=== PATIENT | female | born 1950 | race African-American/Black ===

== ENCOUNTER 2016-04-30 13:43 | Emergency (ER) | payer MEDICARE, OTHER ==
[~2016-04-30] VITALS: Ht 167.6 cm; Wt 96.0 kg
[~2016-04-30 13:43] MED LIST: ALBU8I INH; AMLO10 PO; AUGM875T PO; FLUT1SPR9; LOVA1TAB47 PO; NEXI40CA PO; ZITH250T PO
[2016-04-30 13:50] VITALS: BP 131/82; PULSE 76; RESP 16; TEMP 98.2; O2SAT 97
[2016-04-30 14:14] LABS: BLOOD, URINE NEG (NEG); GLUCOSE,URINE NEG (NEG); KETONE, URINE NEG (NEG); NITRITE,URINE NEG (NEG); PH, URINE 6.5 (5.0-8.5)
[2016-04-30 14:16] LABS: METHOD OF COLLECTION CLEAN CATCH; URINE COLOR YELLOW (YELLW/STRAW)
[2016-04-30 14:17] LABS: SQUAMOUS EPITHELIAL CELL URINE 0-5 /hpf (0-5); WBC, URINE 0-2 /hpf (0-5)
[2016-04-30 14:18] LABS: COMMENT (UR) CULT NOT INDICATED; CULTURE IF INDICATED CULT NOT INDICATED
[2016-04-30] MEDS ORDERED: AMLO10TA2 PO (14:32)
[2016-04-30] MEDS ORDERED: LOVA20TA PO (14:32)
--- NOTE | 2016-04-30 15:12 | PD ---
HPI Chief Complaint: Musculoskeletal Complaint Time Seen by Provider: 15:12 Travel History International Travel<30 days: No Contact w/Intl Traveler<30days: No Traveled to known affect area: No History of Present Illness HPI 66-year-old female presents to the ED for evaluation of 1 week history of right- sided back and flank pain. Patient states that his become worsened over the last 2 days. She describes the pain as sharp, intermittent. She states that the pain comes on suddenly then gradually fades away. She denies fever or chills, abdominal pain, nausea, vomiting. She does endorse increased urinary urgency without dysuria. Denies history of kidney stones. Endorses history of lap iain. No treatment attempted at home. PFSH Past Medical History Cancer: No Cardiovascular Problems: No High Cholesterol: Yes Diabetes: No Diminished Hearing: No Endocrine: No Gastrointestinal Disorders: Yes (REFLUX) GERD: Yes Genitourinary: No Hepatitis: No Hiatal Hernia: No Hypertension: Yes Immune Disorder: No Musculoskeletal: No Neurologic: No Psychiatric: No Reproductive: No Respiratory: No Immunizations Current: No Thyroid Disease: No Influenza Vaccination: Yes ?: Not Menopausal: Yes : 3 Para: 3 Past Surgical History Abdominal Surgery: Yes (LAP. IAIN) AICD: No Appendectomy: Yes Cholecystectomy: Yes Hysterectomy: Yes Joint Replacement: No Pacemaker: No Other Surgery: Yes Social History [facility] Use: Yes ([facility]) Tobacco Use: Yes (QUIT IN 1989) Substance Use: No Allergies-Medications (Allergen,Severity, Reaction): Coded Allergies: No Known Allergies (Verified , 04/30/16) Reported Meds & Prescriptions Reported Meds & Active Scripts Active Flexeril (Cyclobenzaprine HCl) 10 Mg Tab 10 Mg PO TID Ibuprofen 800 Mg Tab 800 Mg PO Q8H Reported Lovastatin 20 Mg Tab 20 Mg PO HS Amlodipine (Amlodipine Besylate) 10 Mg Tab 20 Mg PO DAILY Review of Systems Except as stated in HPI: all other systems reviewed are Neg Physical Exam Narrative GENERAL: Well-nourished, well-developed nontoxic-appearing black female in no acute distress. SKIN: Warm and dry. HEAD: Normocephalic. EYES: No scleral icterus. No injection or drainage. NECK: Supple, trachea midline. No JVD or lymphadenopathy. CARDIOVASCULAR: Regular rate and rhythm without murmurs, gallops, or rubs. RESPIRATORY: Breath sounds clear and equal bilaterally. No accessory muscle use. GASTROINTESTINAL: Abdomen soft, non-tender, nondistended. + Right-sided flank and RLQ TTP. MUSCULOSKELETAL: No cyanosis, or edema. BACK: No midline tenderness. No obvious deformity. + right sided CVA tenderness. Data Data Last Documented VS Vital Signs Date Time Temp Pulse Resp B/P Pulse Ox O2 Delivery O2 Flow Rate FiO2 04/30/16 13:50 98.2 76 16 131/82 97 Orders Urinalysis - C+S If Indicated (04/30/16 13:53) Ct Abd/Pel W/O Iv Contrast (04/30/16 15:16) Ketorolac Inj (Toradol Inj) (04/30/16 16:15) Orphenadrine Inj (Norflex Inj) (04/30/16 16:15) Labs Laboratory Tests Test 04/30/16 13:50 Urine Collection Type CLEAN CATCH Urine Color YELLOW Urine Turbidity CLEAR Urine pH 6.5 Urine Specific [place] 1.005 Urine Protein NEG mg/dL Urine Glucose (UA) NEG mg/dL Urine Ketones NEG mg/dL Urine Occult Blood NEG Urine Nitrite NEG Urine Bilirubin NEG Urine Leukocyte Esterase NEG Urine WBC 0-2 /hpf Urine Squamous Epithelial 0-5 /hpf Cells Microscopic Urinalysis Comment CULT NOT INDICATED MDM Medical Decision Making Medical Screen Exam Complete: Yes Emergency Medical Condition: Yes Differential Diagnosis UTI versus nephroureterolithiasis versus musculoskeletal pain versus other Narrative Course 66-year-old female presents to the ED for evaluation of 1 week history of right- sided back and flank pain. Patient states that his become worsened over the last 2 days. She describes the pain as sharp, intermittent. She states that the pain comes on suddenly then gradually fades away. She denies fever or chills, abdominal pain, nausea, vomiting. She does endorse increased urinary urgency without dysuria. Denies history of kidney stones. Endorses history of lap iain. Vitals reviewed. Physical exam positive for right-sided flank, right lower quadrant and right CVA tenderness. Patient was administered IM and Toradol and Norflex. indicated that the UA. CT negative for renal stones or other acute intra-abdominal processes. His musculoskeletal pain. Patient was prescribed a short course of anti-inflammatory medications and muscle relaxants. She is cautioned not to drive while taking the muscle relaxants. She is instructed to take medications as prescribed, return to normal, gentle activities as tolerated, follow-up with primary care provider. She indicated understanding of instructions and is amenable to plan of care. Patient stable discharged home. Diagnosis Primary Impression: Acute right flank pain Additional Impression: Musculoskeletal pain Referrals: Primary Care Physician Patient Instructions: General Instructions, Muscle Spasm (ED), Musculoskeletal Pain (ED) Additional Instructions: Rest, hydrate. Resume normal, gentle activities as tolerated. No strenuous physical activities for the next few days Take 800 mg ibuprofen 3 times a day as prescribed. Flexeril up to 3 times a day as needed for muscle spasms. Do not drive while taking Flexeril. Applying ice or heat to areas with sore muscles may help to improve your pain Do not apply ice/ heat for longer than 20 m/h. Follow-up with your primary care provider next week. Return to the ED for any urgent or emergent medical condition. Med/Other Pt SpecificInfo: Prescription(s) given Scripts Cyclobenzaprine (Flexeril)10 Mg Tab10 Mg PO TID #12 TAB Ref 0 Prov:Sylvia James MD 04/30/16 Ibuprofen 800 Mg [id number] Mg PO Q8H #10 TAB Ref 0 Prov:Sylvia James MD 04/30/16 Disposition: 01 DISCHARGE HOME Condition: Stable Radha Ash Apr 30, 2016 15:12
--- NOTE | 2016-04-30 15:59 | RADHPO ---
EXAM DATE/TIME: 04/30/2016 15:25 [facility] COMPARISON: No previous studies available for comparison. INDICATIONS : Right posterior flank abdominal pain. ORAL CONTRAST: No oral contrast ingested. RADIATION DOSE: 24.37 CTDIvol (mGy) MEDICAL HISTORY : Hypertension. Gastroesophageal reflux disease. SURGICAL HISTORY : Cholecystectomy. Hysterectomy. ENCOUNTER: Initial ACUITY: 3 days PAIN SCALE: 8/10 LOCATION: Right flank TECHNIQUE: Volumetric scanning of the abdomen and pelvis was performed. Using automated exposure control and ad justment of the mA and/or kV according to patient size, radiation dose was kept as low as reasonably achievable to obtain optimal diagnostic quality images. FINDINGS: Renals stones are not seen. There are calcifications seen in the retroperitoneum and the pelvis like ly related to phleboliths. Ureteral stones are not seen. The liver, spleen, pancreas, and adrenal gl ands are unremarkable. Clips are seen in the right upper quadrant from prior cholecystectomy. There are a few scattered colonic diverticula without inflammatory change. There is degenerative change in the lumbar spine. Vascular calcifications are seen in the arterial system. No aneurysm is seen. CONCLUSION: 1. No acute abnormalities seen. Renal stones are not seen. 2. Scattered colonic diverticula. Ponce Pagan MD on April 30, 2016 at 15:43 Board Certified Radiologist. This report was verified electronically.
[2016-04-30] MEDS ORDERED: CYCL1TAB29 PO (16:04)
[2016-04-30] MEDS ORDERED: IBUP800T23 PO (16:04)
[2016-04-30] MEDS ORDERED: KETOROLAC TROMETHAMINE 60 MG/2 ML (IM) VIAL IM ONE (16:15)
[2016-04-30] MEDS ORDERED: ORPHENADRINE INJ 60 MG/2 ML AMP IM ONE (16:15)
== END 2016-04-30 16:21 | disposition home or self-care (01) ==
LOC: PHEFT 13:43
DX: R10.9 Unspecified abdominal pain (principal); M79.1 Myalgia; R39.15 Urgency of urination; E78.00 Pure hypercholesterolemia, unspecified; I10 Essential (primary) hypertension
CPT/HCPCS: 74176; 81001; 96372; 99284; J1885; J2360

== ENCOUNTER 2016-05-10 07:03 | Emergency (ER) | payer MEDICARE, OTHER ==
[~2016-05-10] VITALS: Ht 167.6 cm; Wt 94.7 kg
[~2016-05-10 07:03] MED LIST changes: -ALBU8I INH; -AMLO10 PO; +AMLO10TA2 PO; -AUGM875T PO; +CYCL1TAB29 PO; -FLUT1SPR9; +IBUP800T23 PO; -LOVA1TAB47 PO; +LOVA20TA PO; -NEXI40CA PO; -ZITH250T PO
[2016-05-10 07:05] VITALS: BP 131/90; PULSE 88; RESP 15; TEMP 99.2; O2SAT 100
[2016-05-10] MEDS ORDERED: NEXI40CA PO (07:23)
[2016-05-10] MEDS ORDERED: AMLO5 PO (07:23)
[2016-05-10] MEDS ORDERED: SODIUM CHLORID 0.9% 500 ML INJ 500 ML IV ONE (07:45)
[2016-05-10] MEDS ORDERED: ONDANSETRON HCL 4 MG/2 ML VIAL IVP ONE (07:45)
[2016-05-10] MEDS ORDERED: SODIUM CHLORIDE 0.9% FLUSH 10 ML FLUSH IV FLUSH PRN (07:45)
--- NOTE | 2016-05-10 07:48 | PD ---
HPI Chief Complaint: Abdominal Pain Time Seen by Provider: 07:44 Travel History International Travel<30 days: No Contact w/Intl Traveler<30days: No Traveled to known affect area: No History of Present Illness HPI 66-year-old female presents to the ER today for 2 days history of nausea, diarrhea, abdominal cramping pains which she currently rates at a 4/10. She does not know any exacerbating or alleviating factors. She states that he kept her up early this morning. She felt flushed and lightheaded. She does not know she had a fever. She denies any vomiting, chest pains, shortness of breath , or any other symptoms. She does not know any sick contacts, recent antibiotic use, or recent travel. Modifying Factors: None Associated Signs & Symptoms: Nausea, diarrhea, abdominal cramping pain Risk Factors: None PFSH Past Medical History Cancer: No Cardiovascular Problems: No High Cholesterol: Yes Diabetes: No Diminished Hearing: No Endocrine: No Gastrointestinal Disorders: Yes (REFLUX) GERD: Yes Genitourinary: No Hepatitis: No Hiatal Hernia: No Hypertension: Yes Immune Disorder: No Musculoskeletal: No Neurologic: No Psychiatric: No Reproductive: No Respiratory: No Immunizations Current: No Thyroid Disease: No ?: Not Menopausal: Yes : 3 Para: 3 Past Surgical History Abdominal Surgery: Yes (LAP. JAXON) AICD: No Appendectomy: Yes Cholecystectomy: Yes Hysterectomy: Yes Joint Replacement: No Pacemaker: No Other Surgery: Yes Social History Alcohol Use: Yes (occ) Tobacco Use: Yes (QUIT IN 1989) Substance Use: No Allergies-Medications (Allergen,Severity, Reaction): Coded Allergies: No Known Allergies (Verified , 05/10/16) Reported Meds & Prescriptions Reported Meds & Active Scripts Active Reported Nexium (Esomeprazole DR) 40 Mg Capdr 40 Mg PO DAILY Norvasc (Amlodipine Besylate) 5 Mg Tab 5 Mg PO DAILY Lovastatin 20 Mg Tab 20 Mg PO HS Review of Systems Except as stated in HPI: all other systems reviewed are Neg Physical Exam Narrative GENERAL: Elderly -[place] female patient currently in no acute distress at rest. Awake and oriented 3. SKIN: Warm and dry. HEAD: Atraumatic. Normocephalic. EYES: Pupils equal and round. No scleral icterus. No injection or drainage. ENT: No nasal bleeding or discharge. Mucous membranes pink and moist. NECK: Trachea midline. No JVD. CARDIOVASCULAR: Regular rate and rhythm. No murmur appreciated. RESPIRATORY: No accessory muscle use. Clear to auscultation. Breath sounds equal bilaterally. GASTROINTESTINAL: Abdomen soft, mild epigastric tenderness without guarding or rebound, nondistended. Hepatic and splenic margins not palpable. MUSCULOSKELETAL: No obvious deformities. No clubbing. No cyanosis. No edema. NEUROLOGICAL: Awake and alert. No obvious cranial nerve deficits. Motor grossly within normal limits. Normal speech. PSYCHIATRIC: Appropriate mood and affect; insight and judgment normal. Data Data Last Documented VS Vital Signs Date Time Temp Pulse Resp B/P Pulse Ox O2 Delivery O2 Flow Rate FiO2 05/10/16 07:05 99.2 88 15 131/90 100 Orders Complete Blood Count With Diff (05/10/16 07:33) Comprehensive Metabolic Panel (05/10/16 07:33) Lipase (05/10/16 07:33) Urinalysis - C+S If Indicated (05/10/16 07:33) Iv Access Insert/Monitor (05/10/16 07:33) Ecg Monitoring (05/10/16 07:33) Oximetry (05/10/16 07:33) Ondansetron Inj (Zofran Inj) (05/10/16 07:45) Sodium Chloride 0.9% Flush (Ns Flush) (05/10/16 07:45) Sodium Chlorid 0.9% 500 Ml Inj (Ns 500 M (05/10/16 07:45) Influenzae A/B Antigen (05/10/16 07:44) Labs Laboratory Tests Test 05/10/16 05/10/16 07:15 07:50 Urine Collection Type CLEAN CATCH Urine Color YELLOW Urine Turbidity CLEAR Urine pH 5.5 Urine Specific [place] 1.019 Urine Protein 30 mg/dL Urine Glucose (UA) NEG mg/dL Urine Ketones NEG mg/dL Urine Occult Blood TRACE Urine Nitrite NEG Urine Bilirubin NEG Urine Leukocyte Esterase NEG Urine RBC 0-3 /hpf Urine WBC 0-2 /hpf Urine Squamous Epithelial > 8 /hpf Cells Urine Bacteria OCC /hpf Microscopic Urinalysis Comment CULT NOT INDICATED Urine Collection Time 07:154 White Blood Count 5.4 TH/MM3 Red Blood Count 4.26 MIL/MM3 Hemoglobin 12.1 GM/DL Hematocrit 35.7 % Mean Corpuscular Volume 83.9 FL Mean Corpuscular Hemoglobin 28.4 PG Mean Corpuscular Hemoglobin 33.8 % Concent Red Cell Distribution Width 15.4 % Platelet Count 252 TH/MM3 Mean Platelet Volume 8.5 FL Neutrophils (%) (Auto) 77.7 % Lymphocytes (%) (Auto) 11.8 % Monocytes (%) (Auto) 6.6 % Eosinophils (%) (Auto) 2.5 % Basophils (%) (Auto) 1.4 % Neutrophils # (Auto) 4.2 TH/MM3 Lymphocytes # (Auto) 0.6 TH/MM3 Monocytes # (Auto) 0.4 TH/MM3 Eosinophils # (Auto) 0.1 TH/MM3 Basophils # (Auto) 0.1 TH/MM3 CBC Comment DIFF FINAL Differential Comment Sodium Level 138 MEQ/L Potassium Level 4.4 MEQ/L Chloride Level 105 MEQ/L Carbon Dioxide Level 26.3 MEQ/L Anion Gap 7 MEQ/L Blood Urea Nitrogen 16 MG/DL Creatinine 1.10 MG/DL Estimat Glomerular Filtration 60 ML/MIN Rate Random Glucose 111 MG/DL Calcium Level 8.8 MG/DL Total Bilirubin 0.3 MG/DL Aspartate Amino Transf 22 U/L (AST/SGOT) Alanine Aminotransferase 31 U/L (ALT/SGPT) Alkaline Phosphatase 65 U/L Total Protein 7.7 GM/DL Albumin 3.3 GM/DL Lipase 205 U/L [facility] Medical Decision Making Medical Screen Exam Complete: Yes Emergency Medical Condition: Yes Medical Record Reviewed: Yes Interpretation(s) Laboratory Tests Test 05/10/16 05/10/16 07:15 07:50 Urine Protein 30 mg/dL (NEG-TRACE) Urine Occult Blood TRACE (NEG) Urine Squamous Epithelial > 8 /hpf (0-5) Cells Urine Bacteria OCC /hpf (NONE) Neutrophils (%) (Auto) 77.7 % (16.0-70.0) Lymphocytes # (Auto) 0.6 TH/MM3 (1.0-4.8) Creatinine 1.10 MG/DL (0.50-1.00) Estimat Glomerular Filtration 60 ML/MIN (>89) Rate Random Glucose 111 MG/DL (74-106) Albumin 3.3 GM/DL (3.4-5.0) Differential Diagnosis Nausea, diarrhea, abdominal cramping painsgastroenteritis versus dehydration versus metabolic issues versus viral syndrome versus gastritis versus pancreatitis Narrative Course Abdomen is benign and I do not suspect an acute intra-abdominal process. Her lab work is fairly unremarkable for any dehydration, metabolic issues, or significant leukocytosis. She does not have influenza. At this point, patient had been given IV fluids, Zofran in the ER. On reevaluation at 8:50 AM, she is doing well, has had no vomiting episodes. She reports feeling more comfortable. Abdominal exam is benign. And at this point my plan would be to release the patient would follow-up to primary care physician. We will give her further symptomatic relief or nausea and cramping and diarrhea. Return for any worsening in symptoms as needed. The plan has been discussed with the patient and she states understanding. Diagnosis Primary Impression: Gastroenteritis Med/Other Pt SpecificInfo: Prescription(s) given Scripts Ondansetron Odt (Zofran Odt)4 Mg Tab4 Mg SL Q6HR PRN (Nausea/Vomiting) #7 TAB Ref 0 Prov:Brayden Pineda MD 05/10/16 Loperamide (Imodium A-D)2 Mg Tab2 Mg PO DIRECTED PRN (DIARRHEA) #20 TAB Ref 0 One tablet after each loose stool. Not to exceed 8 tablets per day. Prov:Brayden Pineda MD 05/10/16 Disposition: 01 DISCHARGE HOME Condition: Stable Brayden Pineda MD May 10, 2016 07:48
[2016-05-10 08:15] LABS: BLOOD, URINE TRACE (NEG); GLUCOSE,URINE NEG (NEG); KETONE, URINE NEG (NEG); NITRITE,URINE NEG (NEG)
[2016-05-10 08:16] LABS: AUTOMATED NEUTROPHIL # 4.2 TH/MM3 (1.8-7.7); BASOPHIL # 0.1 TH/MM3 (0-0.2); BASOPHIL % 1.4 % (0.0-2.0); EOSINOPHIL # 0.1 TH/MM3 (0-0.4); EOSINOPHIL % 2.5 % (0.0-4.0); HEMATOCRIT 35.7 % (35.0-46.0); HEMO FLAGS DIFF FINAL; LYMPH % 11.8 % (9.0-44.0); LYMPHOCYTE # 0.6 TH/MM3 (1.0-4.8); MEAN CELL VOLUME 83.9 FL (80.0-100.0); MEAN CORPUSCULAR HEMOGLOBIN 28.4 PG (27.0-34.0); MEAN CORPUSCULAR HGB CONC 33.8 % (32.0-36.0); MONO % 6.6 % (0.0-8.0); NEUT % 77.7 % (16.0-70.0); PLATELET COUNT 252 TH/MM3 (150-450); RED BLOOD COUNT 4.26 MIL/MM3 (4.00-5.30); RED CELL DISTRIBUTION WIDTH 15.4 % (11.6-17.2); WHITE BLOOD COUNT 5.4 TH/MM3 (4.0-11.0)
[2016-05-10 08:21] LABS: BACTERIA, URINE OCC /hpf; COMMENT (UR) CULT NOT INDICATED; CULTURE IF INDICATED CULT NOT INDICATED; METHOD OF COLLECTION CLEAN CATCH; PH, URINE 5.5 (5.0-8.5); RBC, URINE 0-3 /hpf (0-3); SQUAMOUS EPITHELIAL CELL URINE > 8 /hpf (0-5); URINE COLOR YELLOW (YELLW/STRAW); WBC, URINE 0-2 /hpf (0-5)
[2016-05-10 08:22] LABS: CHLORIDE 105 MEQ/L (98-107); POTASSIUM 4.4 MEQ/L (3.5-5.1); SODIUM (NA) 138 MEQ/L (136-145)
[2016-05-10 08:26] LABS: ANION GAP 7 MEQ/L (5-15); BICARBONATE 26.3 MEQ/L (21.0-32.0)
[2016-05-10 08:27] LABS: BLOOD UREA NITROGEN 16 MG/DL (7-18)
[2016-05-10 08:29] LABS: ALT (GPT) 31 U/L (10-53); AST (GOT) 22 U/L (15-37); GLOMERULAR FILTRATION RATE 60 ML/MIN (>89)
[2016-05-10 08:31] LABS: TOTAL BILIRUBIN ADULT 0.3 MG/DL (0.2-1.0)
[2016-05-10 08:32] LABS: ALKALINE PHOSPHATASE 65 U/L (45-117)
[2016-05-10] MEDS ORDERED: ZOFR4TAB3 SL (08:59)
[2016-05-10] MEDS ORDERED: IMOD2TAB3 PO (08:59)
[2016-05-10 09:19] VITALS: BP 127/73
== END 2016-05-10 09:20 | disposition home or self-care (01) ==
LOC: PHED 07:03
DX: K52.9 Noninfective gastroenteritis and colitis, unspecified (principal)
CPT/HCPCS: 80053; 81001; 83690; 85025; 87804; 96361; 96374; 99284; J2405; J7040

== ENCOUNTER 2017-02-20 11:46 | Emergency (ER) | payer MEDICARE, OTHER ==
[~2017-02-20] VITALS: Ht 167.6 cm; Wt 88.0 kg
[~2017-02-20 11:46] MED LIST changes: -AMLO10TA2 PO; +AMLO5 PO; -CYCL1TAB29 PO; -IBUP800T23 PO; +IMOD2TAB3 PO; +NEXI40CA PO; +ZOFR4TAB3 SL
[2017-02-20 11:53] VITALS: BP 155/75; PULSE 81; RESP 16; TEMP 100; O2SAT 99
[2017-02-20] MEDS ORDERED: ACETAMINOPHEN 500 MG CPLT PO ONE (13:15)
--- NOTE | 2017-02-20 13:28 | PD ---
HPI Chief Complaint: Cold / Flu Symptoms Time Seen by Provider: 12:54 Travel History International Travel<30 days: No Contact w/Intl Traveler<30days: No Traveled to known affect area: No History of Present Illness HPI 67-year-old female presents to the ED for evaluation of four-day history of headache, chills, sinus congestion, ear pressure, runny nose, nonproductive cough, body aches. She has not measured a fever at home. She is unsure if she received this years flu shot. She endorses receiving the pneumonia vaccine in the past. She denies sick contacts. She treated with [id number] medications with no improvement of symptoms. PFSH Past Medical History Hx Anticoagulant Therapy: Yes (BABY ASA DAILY) Cancer: No Cardiovascular Problems: Yes (HTN, CHOL) High Cholesterol: Yes Diabetes: No Diminished Hearing: No Endocrine: No Gastrointestinal Disorders: Yes (REFLUX) GERD: Yes Genitourinary: No Hepatitis: No Hiatal Hernia: No Hypertension: Yes Immune Disorder: No Medical other: No Musculoskeletal: No Neurologic: No Psychiatric: No Reproductive: No Respiratory: No Immunizations Current: No Thyroid Disease: No Tetanus Vaccination: Unknown ?: Not Menopausal: Yes : 3 Para: 3 Past Surgical History Abdominal Surgery: Yes (LAP. JAXON) AICD: No Appendectomy: Yes Cholecystectomy: Yes Hysterectomy: Yes Joint Replacement: No Pacemaker: No Other Surgery: Yes Social History Alcohol Use: Yes (occ) Tobacco Use: Yes (QUIT IN 1989) Substance Use: No Allergies-Medications (Allergen,Severity, Reaction): Coded Allergies: No Known Allergies (Verified , 05/10/16) Reported Meds & Prescriptions Reported Meds & Active Scripts Active Reported Norvasc (Amlodipine Besylate) 5 Mg Tab 5 Mg PO DAILY Lovastatin 20 Mg Tab 20 Mg PO HS Review of Systems Except as stated in HPI: all other systems reviewed are Neg Physical Exam Narrative GENERAL: Well-nourished, well-developed, ill-appearing, pleasant AA female in no acute distress. SKIN: Focused skin assessment warm/dry. HEAD: Normocephalic. EYES: No scleral icterus. No injection or drainage. ENT: Pearly pearl tympanic membranes with serous effusion bilaterally. 2+ tonsils. No erythema, edema, exudate. Airway patent. Uvula midline. NECK: Supple, trachea midline. No JVD or lymphadenopathy. CARDIOVASCULAR: Regular rate and rhythm without murmurs, gallops, or rubs. RESPIRATORY: Breath sounds clear and equal bilaterally. No accessory muscle use. GASTROINTESTINAL: Abdomen soft, non-tender, nondistended. MUSCULOSKELETAL: No cyanosis, or edema. BACK: Nontender without obvious deformity. No CVA tenderness. Data Data Last Documented VS Vital Signs Date Time Temp Pulse Resp B/P (MAP) Pulse Ox O2 Delivery O2 Flow Rate FiO2 02/20/17 11:53 100.0 81 16 155/75 (101) 99 Orders Orders Influenzae A/B Antigen (02/20/17 12:22) Acetaminophen (Tylenol) (02/20/17 13:15) MDM Medical Decision Making Medical Screen Exam Complete: Yes Emergency Medical Condition: Yes Differential Diagnosis Influenza versus viral syndrome versus less likely pneumonia versus other Narrative Course 67-year-old female presents to the ED for evaluation of four-day history of headache, chills, sinus congestion, ear pressure, runny nose, nonproductive cough, body aches. She has not measured a fever at home. She is unsure if she received this years flu shot. She endorses receiving the pneumonia vaccine in the past. She denies sick contacts. Temp 100 orally on presentation. Physical exam reveals an ill-appearing female no acute distress. She has bilateral serous effusions of the tympanic membranes and 2+ tonsils without erythema, edema or exudate. Exam is otherwise unremarkable. Rapid flu swab positive. Patient was administered 500 mg Tylenol by mouth. In terms onset beyond the window for tamsulosin. She is instructed to treat symptomatically, isolate until improved, follow up with the primary care provider. She indicated understanding of instructions and is agreeable a care plan. She stable and discharged home. Diagnosis Primary Impression: Influenza A Referrals: Primary Care Physician Patient Instructions: General Instructions, Influenza (ED) Additional Instructions: Rest, hydrate. Push fluids such as sports drinks, Pedialyte, popsicles, clear broth. Continue with symptomatic treatment with OTC medications. Medications containing decongestant such as Mucinex D will help reduce sinus pressure and cough. Alternating Motrin and Tylenol every 4-6 hours as needed for continued fever. Increase handwashing frequently to avoid the spread of the virus to other family members and the community. Disinfect commonly touched surfaces such as light switches, microwaves, remote controls. Replace toothbrush at the end of this illness. Follow-up with the primary care provider this week. Return to the ED for any urgent or emergent medical condition. Disposition: 01 DISCHARGE HOME Condition: Stable Radha Ash Feb 20, 2017 13:28
== END 2017-02-20 13:50 | disposition home or self-care (01) ==
LOC: PHEFT 11:46
DX: J09.X2 Influenza due to identified novel influenza A virus with other respiratory manifestations (principal); R51 Headache; I10 Essential (primary) hypertension; E78.00 Pure hypercholesterolemia, unspecified; K21.9 Gastro-esophageal reflux disease without esophagitis; Z79.899 Other long term (current) drug therapy; Z87.891 Personal history of nicotine dependence
CPT/HCPCS: 87804; 99283